=== PATIENT | female | born 1995 | race Caucasian/White ===

== ENCOUNTER 2017-11-21 08:46 | Emergency (ER) | payer BC, MEDICAID ==
[~2017-11-21] VITALS: Ht 162.6 cm; Wt 62.5 kg
[~2017-11-21 08:46] MED LIST: ZOFR4TAB3 PO
[2017-11-21 08:52] VITALS: BP 127/64; PULSE 97; RESP 18; TEMP 99.3; O2SAT 100
[2017-11-21] MEDS ORDERED: SODIUM CHLOR 0.9% 1000 ML INJ 1,000 ML IV ONE (09:30)
[2017-11-21] MEDS ORDERED: PROCHLORPERAZINE INJ 10 MG/2 ML VIAL IV PUSH ONE (09:30)
[2017-11-21] MEDS ORDERED: ACETAMINOPHEN 650 MG SUPP RECTAL ONE (09:30)
[2017-11-21] MEDS ORDERED: diphenhydrAMINE HCL 50 MG/ML VIAL IV PUSH ONE (09:30)
[2017-11-21 09:48] LABS: AUTOMATED NEUTROPHIL # 7.6 TH/MM3 (1.8-7.7); BASOPHIL % 0.1 % (0.0-2.0); EOSINOPHIL % 0.1 % (0.0-4.0); HEMATOCRIT 39.2 % (35.0-46.0); HEMOGLOBIN 13.6 GM/DL (11.6-15.3); LYMPHOCYTE # 0.5 TH/MM3 (1.0-4.8); MEAN CELL VOLUME 86.6 FL (80.0-100.0); MEAN CORPUSCULAR HGB CONC 34.7 % (32.0-36.0); MEAN PLATELET VOLUME 10.1 FL (7.0-11.0); MONO % 5.2 % (0.0-8.0); MONOCYTE # 0.4 TH/MM3 (0-0.9); NEUT % 88.6 % (16.0-70.0); PLATELET COUNT 217 TH/MM3 (150-450); RED BLOOD COUNT 4.53 MIL/MM3 (4.00-5.30); WHITE BLOOD COUNT 8.6 TH/MM3 (4.0-11.0)
[2017-11-21 09:53] LABS: BACTERIA, URINE FEW /hpf; BILIRUBIN, URINE NEG (NEG); BLOOD, URINE NEG (NEG); GLUCOSE,URINE NEG (NEG); KETONE, URINE 10 mg/dL (NEG); MUCUS URINE FEW /lpf (OCC); NITRITE,URINE NEG (NEG); SQUAMOUS EPITHELIAL CELL URINE 4 /hpf (0-5); URINE COLOR YELLOW (YELLW/STRAW); URINE LEUKOCYTE ESTERASE SMALL (NEG)
[2017-11-21 10:00] VITALS: BP 104/62; PULSE 85; RESP 16; O2SAT 99
[2017-11-21 10:04] LABS: ALBUMIN 3.8 GM/DL (3.4-5.0); AST (GOT) 13 U/L (15-37); BICARBONATE 21.6 MEQ/L (21.0-32.0); BLOOD UREA NITROGEN 6 MG/DL (7-18); CALCIUM 8.8 MG/DL (8.5-10.1); CHLORIDE 105 MEQ/L (98-107); GLOMERULAR FILTRATION RATE 154 ML/MIN (>89); GLUCOSE,RANDOM 87 MG/DL (74-106); SODIUM (NA) 136 MEQ/L (136-145)
[2017-11-21 10:05] LABS: ALT (GPT) 27 U/L (10-53)
[2017-11-21 10:07] LABS: ALKALINE PHOSPHATASE 51 U/L (45-117); TOTAL BILIRUBIN ADULT 0.7 MG/DL (0.2-1.0); TOTAL PROTEIN 7.1 GM/DL (6.4-8.2)
[2017-11-21] MEDS ORDERED: cefTRIAXone INJ 1,000 MG in SODIUM CHLORIDE 0.9% INJ 100 ML IV ONE (10:15)
--- NOTE | 2017-11-21 10:42 | PD ---
HPI . Fever Chief Complaint: Related Problem Time Seen by Provider: 09:01 Travel History International Travel<30 days: No Contact w/Intl Traveler<30days: No Traveled to known affect area: No History of Present Illness HPI This patient presents with the chief complaint of fever. Onset was about 8:00 last night. Symptoms have been constant since that time. Associated symptoms include nausea, vomiting and myalgias. T-max was 103. Severity of vomiting is greater than 10 episodes. Context is that she is 10 weeks . She is followed by OB. PFSH Past Medical History ADHD: Yes Diminished Hearing: No Tetanus Vaccination: < 5 Years Influenza Vaccination: Yes ?: LMP: 09/18/17 : 1 Para: 1 Past Surgical History Other Surgery: Yes (2005 CYST REMOVED OFF SCALP) Social History Alcohol Use: No Tobacco Use: No Substance Use: No Allergies-Medications (Allergen,Severity, Reaction): Coded Allergies: No Known Allergies (Unverified Adverse Reaction, Unknown, 11/21/17) Reported Meds & Prescriptions Reported Meds & Active Scripts Active Review of Systems Except as stated in HPI: all other systems reviewed are Neg General / Constitutional: Positive: Fever, Chills HENT: No: Sore Throat, Rhinorrhea Respiratory: No: Cough, Shortness of Breath Gastrointestinal: Positive: Nausea, Vomiting, No: Diarrhea Genitourinary: Positive: Flank Pain, No: Urgency, Frequency, Dysuria Musculoskeletal: Positive: Myalgias Physical Exam Narrative GENERAL: Awake and alert. She does not look like she feels well. SKIN: warm/dry. Normal color and turgor. HEAD: Normocephalic. Atraumatic. EYES: Pupils equal and round. No scleral icterus. No injection or drainage. ENT: No nasal bleeding or discharge. Mucous membranes pink and moist. NECK: Trachea midline. Full range of motion without pain.. CARDIOVASCULAR: Regular rate and rhythm. Heart sounds are normal. RESPIRATORY: No accessory muscle use. Clear to auscultation. Breath sounds equal bilaterally. GASTROINTESTINAL: Abdomen soft. Nontender. Bowel sounds present. Nondistended. : Positive left CVA tenderness. MUSCULOSKELETAL: No obvious deformities. NEUROLOGICAL: Awake and alert. No obvious cranial nerve deficits. Motor grossly within normal limits. Normal speech. PSYCHIATRIC: Appropriate mood and affect; insight and judgment normal. Data Data Last Documented VS Vital Signs Date Time Temp Pulse Resp B/P (MAP) Pulse Ox O2 Delivery O2 Flow Rate FiO2 11/21/17 08:52 99.3 97 18 127/64 (85) 100 Orders Orders Sepsis Workup Initiated (11/21/17 ) Complete Blood Count With Diff (11/21/17 09:20) Comprehensive Metabolic Panel (11/21/17 09:20) Lactic Acid Sepsis Protocol (11/21/17 09:20) Urinalysis - C+S If Indicated (11/21/17 09:20) Blood Culture (11/21/17 09:20) Iv Access Insert/Monitor (11/21/17 09:20) Acetaminophen Supp (Tylenol Supp) (11/21/17 09:30) Sodium Chlor 0.9% 1000 Ml Inj (Ns 1000 M (11/21/17 09:30) Diphenhydramine Inj (Benadryl Inj) (11/21/17 09:30) Prochlorperazine Inj (Compazine Inj) (11/21/17 09:30) Urine Culture (11/21/17 09:30) Ceftriaxone Inj (Rocephin Inj) (11/21/17 10:15) Us Kidney/Renal/Bladder (11/21/17 10:03) Labs Laboratory Tests Test 11/21/17 09:30 White Blood Count 8.6 TH/MM3 Red Blood Count 4.53 MIL/MM3 Hemoglobin 13.6 GM/DL Hematocrit 39.2 % Mean Corpuscular Volume 86.6 FL Mean Corpuscular Hemoglobin 30.0 PG Mean Corpuscular Hemoglobin Concent 34.7 % Red Cell Distribution Width 13.0 % Platelet Count 217 TH/MM3 Mean Platelet Volume 10.1 FL Neutrophils (%) (Auto) 88.6 % Lymphocytes (%) (Auto) 6.0 % Monocytes (%) (Auto) 5.2 % Eosinophils (%) (Auto) 0.1 % Basophils (%) (Auto) 0.1 % Neutrophils # (Auto) 7.6 TH/MM3 Lymphocytes # (Auto) 0.5 TH/MM3 Monocytes # (Auto) 0.4 TH/MM3 Eosinophils # (Auto) 0.0 TH/MM3 Basophils # (Auto) 0.0 TH/MM3 CBC Comment DIFF FINAL Differential Comment Urine Color YELLOW Urine Turbidity CLEAR Urine pH 7.0 Urine Specific [place] 1.025 Urine Protein TRACE mg/dL Urine Glucose (UA) NEG mg/dL Urine Ketones 10 mg/dL Urine Occult Blood NEG Urine Nitrite NEG Urine Bilirubin NEG Urine Urobilinogen LESS THAN 2.0 MG/DL Urine Leukocyte Esterase SMALL Urine RBC 1 /hpf Urine WBC 3 /hpf Urine Squamous Epithelial Cells 4 /hpf Urine Bacteria FEW /hpf Urine Mucus FEW /lpf Microscopic Urinalysis Comment CATH-CULTURE IND Blood Urea Nitrogen 6 MG/DL Creatinine 0.50 MG/DL Random Glucose 87 MG/DL Total Protein 7.1 GM/DL Albumin 3.8 GM/DL Calcium Level 8.8 MG/DL Alkaline Phosphatase 51 U/L Aspartate Amino Transf (AST/SGOT) 13 U/L Alanine Aminotransferase (ALT/SGPT) 27 U/L Total Bilirubin 0.7 MG/DL Sodium Level 136 MEQ/L Potassium Level 3.7 MEQ/L Chloride Level 105 MEQ/L Carbon Dioxide Level 21.6 MEQ/L Anion Gap 9 MEQ/L Estimat Glomerular Filtration Rate 154 ML/MIN Lactic Acid Level 0.6 mmol/L MDM Medical Decision Making Medical Screen Exam Complete: Yes Emergency Medical Condition: Yes Differential Diagnosis Differential diagnosis of fever includes but is not limited to viral illness, strep throat, otitis media, pneumonia, sepsis, UTI Narrative Course This patient presents complaining with the acute onset of fevers, vomiting and myalgias last night. She is . Septic workup was initiated. IV fluids were ordered. Compazine and Benadryl were ordered for the vomiting. I ordered a Tylenol suppository for fever but she refused. She is afebrile here. CBC & BMP Diagram 11/21/17 09:30 Total Protein 7.1, Albumin 3.8, Calcium Level 8.8, Alkaline Phosphatase 51, Aspartate Amino Transf (AST/SGOT) 13 L, Alanine Aminotransferase (ALT/SGPT) 27, Total Bilirubin 0.7 Lactic acid 0.6 UA shows small leukocyte esterase, few bacteria and 3 WBC I have ordered Rocephin 1 g IV and an ultrasound of her kidney to rule out pyelonephritis. US>>Normal examination. This patient will be discharged home with a prescription for Zofran and Macrobid. Diagnosis Primary Impression: Fever Qualified Codes: R50.9 - Fever, unspecified Additional Impressions: Myalgia Vomiting Qualified Codes: R11.2 - Nausea with vomiting, unspecified Urinary tract infection Qualified Codes: N39.0 - Urinary tract infection, site not specified Patient Instructions: General Instructions, Urinary Tract Infection in (DC) Med/Other Pt SpecificInfo: Prescription(s) given Scripts Nitrofurantoin Monohydrate Macrocrystals (Macrobid) 100 Mg Capsule 100 MG PO BID for Infection for 7 Days, #14 CAP 0 Refills Prov: Sweta Palacios MD 11/21/17 Ondansetron Odt (Zofran Odt) 4 Mg Tab 4 MG SL Q6HR Y for Nausea/Vomiting, #10 TAB 0 Refills Prov: Sweta Palacios MD 11/21/17 Disposition: 01 DISCHARGE HOME Condition: Stable Sweta Palacios MD November 21, 2017 10:42
--- NOTE | 2017-11-21 10:52 | RADRPT ---
EXAM DATE/TIME: 11/21/2017 10:26 [place] COMPARISON: No previous studies available for comparison. INDICATIONS : Flank pain. MEDICAL HISTORY : . ADHD. SURGICAL HISTORY : Cyst removed from scalp. ENCOUNTER: Initial ACUITY: 2 days PAIN SCORE: 7/10 LOCATION: Bilateral flank MEASUREMENTS: RIGHT KIDNEY: 11.9 x 6.1 x 4.8 cm LEFT KIDNEY: 10.7 x 5.7 x 6.1 cm FINDINGS: RIGHT KIDNEY: Renal cortex is normal in thickness and echotexture. No hydronephrosis, stone, or mass. LEFT KIDNEY: Renal cortex is normal in thickness and echotexture. No hydronephrosis, stone, or mass. BLADDER: Within normal limits given the degree of distension. CONCLUSION: Normal examination. Alexx Reese MD on November 21, 2017 at 10:49 Board Certified Radiologist. This report was verified electronically.
[2017-11-21] MEDS ORDERED: MACR100C2 PO (10:59)
[2017-11-21] MEDS ORDERED: ZOFR4TAB3 SL (10:59)
[2017-11-21 11:00] VITALS: BP 102/60; PULSE 86; RESP 18; O2SAT 99
== END 2017-11-21 11:43 | disposition home or self-care (01) ==
LOC: NEPD 08:46
DX: O23.41 Unspecified infection of urinary tract in pregnancy, first trimester (principal); Z3A.10 10 weeks gestation of pregnancy
CPT/HCPCS: 76775; 80053; 81001; 83605; 85025; 87040; 87086; 96361; 96365; 96375; 99284; J0696; J0780; J1200; J7030

== ENCOUNTER 2018-05-12 15:20 | Observation (INO) ==
--- NOTE | 2018-05-12 16:32 | ED ---
History of Present Illness Primary Care Physician: No Primary Care Physician Dr. August History of Present Illness: 23 y/o F, 34wks gestation, presents with persistent N/V over the day today, with mild diarrhea. She had nausea medication at the office which helped a little bit. She is also feeling pain in her back and feels like she is having contractions. Denies any LOF. Denies Vb. +FM obhx: planning on c/s for this due to laceration VD x 1 - 2016, with 4th degree tear, complicated by pre-term labor medhx: none meds: PNV all: NKDA Review of Systems All other systems reviewed negative except as stated in HPI PMFSH - History History Provided By: Patient - Surgical History Surgical History: Surgical History (Last Updated 03/18/18 @ 15:20 by Delilah Powers MD, R2) H/O removal of cyst - Tobacco History Second Hand Smoke Exposure: No Smoking Status: Never smoker - Alcohol History How Often Do You Have a Drink Containing Alcohol: Never - Substance Use History Substance History: No History of Abuse - Travel History History of Recent Travel: No Medications and Allergies Allergies Allergy/AdvReac Type Severity Reaction Status Date / Time No Known Allergies Allergy Verified 03/07/18 13:48 Home Medications Medication Instructions Recorded Confirmed Type vit,[id number] 1 tab PO DAILY 02/09/18 05/12/18 History [PNV 29-1] Exam Vital signs: Vital Signs 05/12/18 15:45 Temperature 100.3 F H Pulse Rate 123 H Respiratory Rate 20 Blood Pressure 118/71 Narrative: GENERAL: Well-nourished, well-developed patient. SKIN: Warm and dry. HEAD: Normocephalic and atraumatic. EYES: No scleral icterus. No injection or drainage. ENT: No nasal drainage noted. Mucous membranes pink. Airway patent. NECK: Supple, trachea midline. No JVD. CARDIOVASCULAR: Regular rate and rhythm without murmurs, gallops, or rubs. RESPIRATORY: Breath sounds equal bilaterally. No accessory muscle use. ABDOMEN/GI: Abdomen soft, non-tender, bowel sounds present, no rebound, no guarding Gravid to 35 weeks size Fundal Height: 35 SVE: 50/-3 GENITOURINARY: External Genitalia: intact and normal in appearance FHT's: Cat 1 tracing, no decels, +accels irregular cxns on monitor EXTREMITIES: No cyanosis or edema. BACK: Nontender without obvious deformity. No CVA tenderness. NEUROLOGICAL: Awake and alert. Motor and sensory grossly within normal limits. Five out of 5 muscle strength in all muscle groups. Normal speech. Results - Labs CBC & Chem 7: 05/12/18 15:44 Assessment and Plan - Diagnosis (1) 34 weeks gestation of Code(s): Z3A.34 - 34 weeks gestation of Status: Acute Plan: 23 y/o F, 34wks gestation, presents with gastritis and pre-term contractions likely related to dehydration. - 1L bolus x 2, then LR at 125/hr - f/u CBC, CMP, UA - Protonix 20mg IVP - Zofran 4mg IVP - Cat 1 tracing, cont to monitor - MD aware (2) Gastroenteritis Code(s): K52.9 - Noninfective gastroenteritis and colitis, unspecified Status : Acute (3) contractions Code(s): O47.9 - False labor, unspecified Status: Acute Discharge Plan - Discharge Disposition Patient Disposition: 30 Still Patient - Physicians Team ED Provider: Gemma White Primary Care Provider: Primary Care Mar Saavedra - Rxs /Orders / Referrals /Forms Prescriptions: No Action vit,[id number] [PNV 29-1] 29 mg iron- 1 mg Tablet 1 tab PO DAILY - Discharge Instructions Print Language: Monegasque
[2018-05-12 16:34] LABS: Baso % (Auto) 0.3 % (0.0-2.0); Eos % (Auto) 0.1 % (0.0-4.0); Hematocrit 35.4 % (35.0-46.0); Hemoglobin 12.1 gm/dL (11.6-15.3); Lymph # (Auto) 0.8 th/mm3 (1.0-4.8); Lymph % (Auto) 6.2 % (9.0-44.0); Mean Corpuscular HGB Conc 34.1 % (32.0-36.0); Mean Platelet Volume 10.1 fL (7.0-11.0); Mono # (Auto) 0.5 th/mm3 (0.0-0.9); Mono % (Auto) 3.7 % (0.0-8.0); Neut # (Auto) 11.7 th/mm3 (1.8-7.7); Neut % (Auto) 89.7 % (16.0-70.0); Platelet Count 191 th/mm3 (150-450); Red Blood Count 4.17 mil/mm3 (4.00-5.30); Red Cell Distribution Width 13.5 % (11.6-17.2); White Blood Count 13.1 th/mm3 (4.0-11.0)
[2018-05-12] MEDS ORDERED: Pantoprazole Inj 40 MG Vial IV.PUSH ONE (16:35)
[2018-05-12] MEDS ORDERED: Labetalol HCl Inj 100 MG/20 ML Vial IV.PUSH ONE (16:51)
[2018-05-12] MEDS ORDERED: Morphine Sulfate Inj 2 MG/ML Vial IV.PUSH ONE (17:10)
[2018-05-12 18:27] LABS: Alanine Aminotransferase 20 U/L (10-53); Albumin 2.9 g/dL (3.4-5.0); Anion Gap 12 meq/L (5-15); Aspartate Aminotransferase 14 U/L (15-37); Blood Urea Nitrogen 8 mg/dL (7-18); Calcium 8.6 mg/dL (8.5-10.1); Carbon Dioxide 22.4 meq/L (21.0-32.0); Chloride 106 meq/L (98-107); Glomerular Filtration Rate Greater Than 89 mL/min (>89); Glucose,Random 69 mg/dL (74-106); Potassium 3.7 meq/L (3.5-5.1); Sodium 140 meq/L (136-145)
[2018-05-12 18:29] LABS: Alkaline Phosphatase 118 U/L (45-117); Total Protein 7.4 g/dL (6.4-8.2)
[2018-05-12 18:35] LABS: Bacteria,Urine Occasional /hpf; Bilirubin,Urine Negative (Negative); Clarity,Urine Hazy (Clear); Color,Urine Yellow (Yellw/Straw); Glucose,Urine (UA) Negative (Negative); Leukocyte Esterase,Urine Large (Negative); Mucus,Urine Few /lpf (Occasional); Nitrite,Urine Negative (Negative); Specific Gravity,Urine 1.025 (1.002-1.035); Squamous Epithelial Cell,Urine 6 /hpf (0-5)
--- NOTE | 2018-05-12 23:09 | P.PN ---
Subjective Interval history: OB Patient presented to [facility] with nausea and vomiting. She was noted to become febrile during her evaluation, so will admit to Dr. Morgan for 23 hour observation and IV hydration. Physical Exam Vital signs: Vital Signs 05/12/18 15:45 05/12/18 18:05 05/12/18 19:17 Temperature 100.3 F H 100.0 F H 101.9 F H Pulse Rate 123 H Respiratory Rate 20 20 Blood Pressure 118/71 05/12/18 21:11 05/12/18 21:35 05/12/18 21:40 Temperature 98.6 F Pulse Rate 110 H 117 H Respiratory Rate 18 Blood Pressure 109/38 L 101/45 L 05/12/18 21:41 05/12/18 22:04 05/12/18 22:05 Temperature 99.5 F Pulse Rate 109 H Respiratory Rate 18 Blood Pressure 111/43 L 05/12/18 22:15 05/12/18 22:17 05/12/18 22:45 Temperature Pulse Rate 103 H 102 H Respiratory Rate 18 Blood Pressure 106/41 L 103/42 L 05/12/18 22:54 Temperature Pulse Rate Respiratory Rate 18 Blood Pressure Intake & Output 05/12/18 05/12/18 05/13/18 06:59 18:59 06:59 Weight 77.111 kg 77.111 kg Other: Weight On Admission 77.111 kg Results - Labs CBC & Chem 7: 05/12/18 15:44 05/12/18 15:44 Laboratory Results - last 24 hr 05/12/18 05/12/18 05/12/18 15:44 15:44 15:44 WBC 13.1 H RBC 4.17 Hgb 12.1 Hct 35.4 MCV 85.0 MCH 29.0 MCHC 34.1 RDW 13.5 Plt Count 191 MPV 10.1 Neut % (Auto) 89.7 H Lymph % (Auto) 6.2 L [place] % (Auto) 3.7 Eos % (Auto) 0.1 Baso % (Auto) 0.3 Neut # (Auto) 11.7 H Lymph # (Auto) 0.8 L [place] # (Auto) 0.5 Eos # (Auto) 0.0 Baso # (Auto) 0.0 WBC Differential . Differential Comment Auto diff final Sodium 140 Potassium 3.7 Chloride 106 Carbon Dioxide 22.4 Anion Gap 12 BUN 8 Creatinine 0.52 Estimated GFR Greater than 89 Random Glucose 69 L Calcium 8.6 Total Bilirubin 0.5 AST 14 L ALT 20 Alkaline Phosphatase 118 H Total Protein 7.4 Albumin 2.9 L Urine Color Yellow Urine Clarity Hazy H Urine pH 5.0 Ur Specific [place] 1.025 Urine Protein 30 H Urine Glucose (UA) Negative Urine Ketones 80 or greater H Urine Occult Blood Negative Urine Nitrate Negative Urine Bilirubin Negative Urine Urobilinogen 2.0 H Ur Leukocyte Esterase Large H Urine RBC 1 Urine WBC 11 H Ur Squamous Epith Cells 6 Urine Bacteria Occasional H Urine Mucus Few H Micro UA Comment Culture indicated Ur Microscopic Review Not Reportable Urine Culture Comments Culture indicated Microbiology 05/12/18 19:20 Nasal Wash Influenza Types A,B Antigen - Final Negative for FLU A and B antigen Infection due to influenza A or B cannot be ruled out since the antigen present in the sample may be below the detection limit of the test.
--- NOTE | 2018-05-12 23:23 | P.HPUP ---
The Pre-Admit History and Physical Examination regarding the above named patient was reviewed (including, but not limited to, vital signs, heart, lungs, co-morbid conditions), and upon re-examination it is noted that: the patient's condition has not significantly changed since the last examination. Changes: Patient Name: Darline Rodriguez Date of : [birth year] Patient Status: Observation Attending Provider: Wilfred August Date: 05/12/18 16:28 Initialization Date: 05/12/18 16:28 History of Present Illness Primary Care Physician: No Primary Care Physician Dr. August History of Present Illness: 23 y/o , IUP at 34.4 weeks care uncomplicated per patient report except by history of fourth degree laceration so scheduled for delivery. The presents with persistent nausea and vomiting over the day today and mild diarrhea. She has not had any diarrhea since arrival. She was seen in the office today and received phenergan which she reports helped a little bit. She is also feeling pain in her back and feels like she is having contractions. Denies any leaking of fluid or vaginal bleeding. She reports good movement. 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, planning on c/s for this due to laceration, complicated by pre-term labor but didn't deliver PMH: Denies FH: noncontributory PSH: history of cyst removal SH: Denies Meds/Allergies: as per EMR Review of Systems All other systems reviewed negative except as stated in HPI PMFSH - History History Provided By: Patient - Surgical History Surgical History: Surgical History (Last Updated 03/18/18 @ 15:20 by Delilah Powers MD, R2) H/O removal of cyst - Tobacco History Second Hand Smoke Exposure: No Smoking Status: Never smoker - Alcohol History How Often Do You Have a Drink Containing Alcohol: Never - Substance Use History Substance History: No History of Abuse - Travel History History of Recent Travel: No Medications and Allergies Allergies Allergy/AdvReac Type Severity Reaction Status Date / Time No Known Allergies Allergy Verified 03/07/18 13:48 Home Medications Medication Instructions Recorded Confirmed Type vit,[id number] 1 tab PO DAILY 02/09/18 05/12/18 History [PNV 29-1] Exam Vital signs: Vital Signs 05/12/18 15:45 Temperature 100.3 F H Pulse Rate 123 H Respiratory Rate 20 Blood Pressure 118/71 Narrative: examination as per previous documentation GENERAL: Well-nourished, well-developed patient. SKIN: Warm and dry. HEAD: Normocephalic and atraumatic. EYES: No scleral icterus. No injection or drainage. ENT: No nasal drainage noted. Mucous membranes pink. Airway patent. NECK: Supple, trachea midline. No JVD. CARDIOVASCULAR: Regular rate and rhythm without murmurs, gallops, or rubs. RESPIRATORY: Breath sounds equal bilaterally. No accessory muscle use. ABDOMEN/GI: Abdomen soft, non-tender, bowel sounds present, no rebound, no guarding Gravid to 35 weeks size Fundal Height: 35 SVE: 50/-3 GENITOURINARY: External Genitalia: intact and normal in appearance FHT's: heart tones are in the 160s with moderate long-term variability, good accels, and no decels, tachycardia improved, Category 1 tracing irregular cxns on monitor EXTREMITIES: No cyanosis or edema. BACK: Nontender without obvious deformity. No CVA tenderness. NEUROLOGICAL: Awake and alert. Motor and sensory grossly within normal limits. Five out of 5 muscle strength in all muscle groups. Normal speech. Results - Labs CBC & Chem 7: Assessment and Plan 1. IUP at 34.4 2. Nausea/vomiting and diarrhea: possible gastroenteritis, will admit for 23 hour observation with IV hydration due to nausea and vomiting. Discussed with Dr. Morgan who is in agreement with admission. Will give Zofran as needed and other symptomatic treatment. 3. Febrile morbidity: influenza testing negative, no evidence of pyelonephritis , Urine culture pending, likely gastroenteritis, will monitor overnight. 4. wellbeing: reassuring testing with reactive NST and category 1 heart rate tracing, continue monitoring overnight. 5. History of fourth degree laceration: scheduled for elective delivery. 6. UA: urine culture pending
[2018-05-13] MEDS: Acetaminophen 325 MG Tablet PO PRN ×2 (03:23→08:09)
[2018-05-13] MEDS: Zolpidem Tartrate 5 MG Tablet PO PRN ×2 (04:06→20:51)
--- NOTE | 2018-05-13 11:11 | P.OBANTE ---
Subjective Interval History: feeling better Objective Vital Signs and I&O: Vital Signs 05/12/18 15:45 05/12/18 18:05 05/12/18 19:17 Temperature 100.3 F H 100.0 F H 101.9 F H Pulse Rate 123 H Respiratory Rate 20 20 Blood Pressure 118/71 05/12/18 21:11 05/12/18 21:35 05/12/18 21:40 Temperature 98.6 F Pulse Rate 110 H 117 H Respiratory Rate 18 Blood Pressure 109/38 L 101/45 L 05/12/18 21:41 05/12/18 22:04 05/12/18 22:05 Temperature 99.5 F Pulse Rate 109 H Respiratory Rate 18 Blood Pressure 111/43 L 05/12/18 22:15 05/12/18 22:17 05/12/18 22:45 Temperature Pulse Rate 103 H 102 H Respiratory Rate 18 Blood Pressure 106/41 L 103/42 L 05/12/18 22:54 05/12/18 23:00 05/12/18 23:27 Temperature Pulse Rate 99 H Respiratory Rate 18 18 Blood Pressure 106/39 L 05/13/18 00:03 05/13/18 00:18 05/13/18 00:33 Temperature 99.2 F Pulse Rate 95 H 96 H Respiratory Rate 18 18 Blood Pressure 103/46 L 102/41 L 05/13/18 01:50 05/13/18 02:00 05/13/18 02:59 Temperature Pulse Rate 95 H 102 H Respiratory Rate 18 18 Blood Pressure 105/45 L 103/45 L 05/13/18 03:00 05/13/18 03:22 05/13/18 03:25 Temperature 100.3 F H Pulse Rate 100 H 111 H Respiratory Rate Blood Pressure 111/52 L 05/13/18 03:30 05/13/18 03:35 05/13/18 03:45 Temperature Pulse Rate 107 H 107 H 107 H Respiratory Rate Blood Pressure 05/13/18 04:00 05/13/18 04:05 05/13/18 04:20 Temperature 100.1 F H Pulse Rate 115 H 115 H 111 H Respiratory Rate 18 Blood Pressure 112/49 L 05/13/18 04:40 05/13/18 04:57 05/13/18 05:00 Temperature 99.7 F H Pulse Rate 112 H 110 H Respiratory Rate 18 18 18 Blood Pressure 98/35 L 05/13/18 05:05 05/13/18 05:37 05/13/18 05:38 Temperature 99.8 F H Pulse Rate 114 H 110 H Respiratory Rate Blood Pressure 99/40 L 05/13/18 05:40 05/13/18 05:55 05/13/18 06:48 Temperature Pulse Rate 108 H 105 H 107 H Respiratory Rate 18 Blood Pressure 97/43 L 05/13/18 07:00 05/13/18 07:31 05/13/18 07:32 Temperature 98.6 F Pulse Rate 101 H 102 H Respiratory Rate 16 Blood Pressure 106/48 L 05/13/18 08:01 Temperature Pulse Rate 106 H Respiratory Rate Blood Pressure 118/68 Intake & Output 05/12/18 05/13/18 05/13/18 18:59 06:59 18:59 Intake Total 1000 / 1000 Balance 1000 / 1000 Weight 77.111 kg 77.111 kg Intake: IV 1000 / 1000 LR 1000 mL Inj 1,000 ML @ 150 1000 / 1000 mls/hr IV.SIG .[id number] [facility] Rx#: [id number] Other: Weight On Admission 77.111 kg Lab and Micro Results: Laboratory Results - last 24 hr 05/12/18 05/12/18 05/12/18 15:44 15:44 15:44 WBC 13.1 H RBC 4.17 Hgb 12.1 Hct 35.4 MCV 85.0 MCH 29.0 MCHC 34.1 RDW 13.5 Plt Count 191 MPV 10.1 Neut % (Auto) 89.7 H Lymph % (Auto) 6.2 L [place] % (Auto) 3.7 Eos % (Auto) 0.1 Baso % (Auto) 0.3 Neut # (Auto) 11.7 H Lymph # (Auto) 0.8 L [place] # (Auto) 0.5 Eos # (Auto) 0.0 Baso # (Auto) 0.0 WBC Differential . Differential Comment Auto diff final Sodium 140 Potassium 3.7 Chloride 106 Carbon Dioxide 22.4 Anion Gap 12 BUN 8 Creatinine 0.52 Estimated GFR Greater than 89 Random Glucose 69 L Calcium 8.6 Total Bilirubin 0.5 AST 14 L ALT 20 Alkaline Phosphatase 118 H Total Protein 7.4 Albumin 2.9 L Urine Color Yellow Urine Clarity Hazy H Urine pH 5.0 Ur Specific [place] 1.025 Urine Protein 30 H Urine Glucose (UA) Negative Urine Ketones 80 or greater H Urine Occult Blood Negative Urine Nitrate Negative Urine Bilirubin Negative Urine Urobilinogen 2.0 H Ur Leukocyte Esterase Large H Urine RBC 1 Urine WBC 11 H Ur Squamous Epith Cells 6 Urine Bacteria Occasional H Urine Mucus Few H Micro UA Comment Culture indicated Ur Microscopic Review Not Reportable Urine Culture Comments Culture indicated Microbiology 05/12/18 19:20 Influenza Types A,B Antigen - Final Nasal Wash Negative for FLU A and B antigen Infection due to influenza A or B cannot be ruled out since the antigen present in the sample may be below the detection limit of the test. Physical Exam: GENERAL: Well-nourished, well-developed patient. CARDIOVASCULAR: Regular rate and rhythm without murmurs, gallops, or rubs. RESPIRATORY: Breath sounds equal bilaterally. No accessory muscle use. ABDOMEN/GI: Abdomen soft, non-tender, no CVA tenderness Fundus: soft nontender GENITOURINARY: External Genitalia: intact and normal in appearance FHT's: STRIP REVIEWD BY DR AUGUST- CATEGORY 1 tracing EXTREMITIES: No cyanosis or edema, non-tender, without signs of DVT. exam by Dr August Assessment and Plan - Plan pt feeling better c/o headache was given tylenol has been afebrile (taking tylenol) tolerating PO, regular food no vomiting or diarrhea tracing good we will watch today and probable dc home later today Discharge Planning: dc home today
[2018-05-13] MEDS: Butalbital/APAP/Caff 50/325/40 MG Tablet PO PRN ×2 (12:59→18:29)
== END 2018-05-14 09:37 | disposition home or self-care (01) ==
LOC: HOBED 15:20 → H2E 15:20
PROVIDERS: ADMIT Obstetrics & Gynecology; ATTEND Obstetrics & Gynecology

== ENCOUNTER 2018-06-15 09:41 | Inpatient (IN) ==
[2018-06-15] MEDS ORDERED: EPINEPHrine PF/SF Inj 1 MG/ML Ampul I-OCULAR ONE (10:44)
--- NOTE | 2018-06-15 10:56 | P.HPOB ---
History of Present Illness Service: Labor & Delivery Primary Care Physician: Norman Heredia DO Chief Complaint: History of Present Illness: Scheduled due to previous fourth degree tear during delivery Weeks Gestation:: 39 Para: 1 : 2 - Inpatient Certification I certify that the inpatient services were ordered in accordance with Medicare regulations governing the order. This includes certification that hospital inpatient services are reasonable and necessary and in the case of services not specified as inpatient-only under 42 CFR 419.22(n), that they are appropriately provided as inpatient services in accordance to with the 2-midnight benchmark under 43 CFR 412.3(e) Estimated Total Length of Stay (Days): 3 Plans for Post Hospital Care: Home Review of Systems All other systems reviewed negative except as stated in HPI PMFSH - History History Provided By: Patient - Medical / Surgical Hx Neg / Unobtainable Medical Problems Denied: Yes - Surgical History Surgical History: Surgical History (Last Reviewed 06/08/18 @ 11:19 by Helena Sanford MD, R1) H/O removal of cyst - Tobacco History Second Hand Smoke Exposure: No Smoking Status: Never smoker - Alcohol History How Often Do You Have a Drink Containing Alcohol: Never - Substance Use History Substance History: No History of Abuse - Travel History History of Recent Travel: No Medications and Allergies Allergies Allergy/AdvReac Type Severity Reaction Status Date / Time No Known Allergies Allergy Verified 05/12/18 21:53 Home Medications Medication Instructions Recorded Confirmed Type vit,[id number] 1 tab PO DAILY 02/09/18 06/08/18 History [PNV 29-1] acetaminophen [Tylenol] 650 mg PO Q4H PRN 06/08/18 06/08/18 History Exam Vital signs: Vital Signs 06/15/18 10:20 Temperature 98.8 F Pulse Rate 98 H Respiratory Rate 18 Blood Pressure 116/66 - Constitutional no acute distress, cooperative - Routine HEENT Exam Head: Present: normocephalic, atraumatic Eye: Present: EOMI, PERRL - Routine Neck Exam Present: full ROM - Routine Respiratory Exam Present: CTA bilaterally - Routine Cardiovascular Exam Present: RRR, S1, S2 - Routine Abdominal Exam Present: soft, normoactive bowel sounds - Routine Extremities Exam Present: full ROM - Routine Skin Exam Present: intact - Routine Neurological Exam Present: alert, oriented X3 Caprini VTE Risk Assessment Caprini VTE Risk Assessment: No/Low Risk (score <= 1) Caprini Risk Assessment Model: Point Value = 1 Point Value = 2 Point Value = 3 Point Value = 5 Age 41-60 Minor surgery BMI > 25 kg/m2 Swollen legs Varicose veins or History of unexplained or recurrent spontaneous Oral contraceptives or hormone replacement Sepsis (< 1 month) Serious lung disease, including pneumonia (< 1 month) Abnormal pulmonary function Acute myocardial infarction Congestive heart failure (< 1 month) History of inflammatory bowel disease Medical patient at bed rest Age 61-74 Arthroscopic surgery Major open surgery (> 45 min) Laparoscopic surgery (> 45 min) Malignancy Confined to bed (> 72 hours) Immobilizing plaster cast Central venous access Age >= 75 History of VTE Family history of VTE Factor V Leiden Prothrombin [id number] Lupus anticoagulant Anticardiolipin antibodies Elevated serum homocysteine Heparin-induced thrombocytopenia Other congenital or acquired thrombophilia Stroke (< 1 month) Elective arthroplasty Hip, pelvis, or leg fracture Acute spinal cord injury (< 1 month) Prophylaxis Regimen: Total Risk Factor Score Risk Level Prophylaxis Regimen 0-1 Low Early ambulation 2 Moderate Order ONE of the following: *Sequential Compression Device (SCD) *Heparin 5000 units SQ BID 3-4 Higher Order ONE of the following medications: *Heparin 5000 units SQ TID *Enoxaparin/Lovenox 40 mg SQ daily (WT < 150 kg, CrCl > 30 mL/min) *Enoxaparin/Lovenox 30 mg SQ daily (WT < 150 kg, CrCl > 10-29 mL/min) *Enoxaparin/Lovenox 30 mg SQ BID (WT < 150 kg, CrCl > 30 mL/min) AND/OR *Sequential Compression Device (SCD) 5 or more Highest Order ONE of the following medications: *Heparin 5000 units SQ TID (Preferred with Epidurals) *Enoxaparin/Lovenox 40 mg SQ daily (WT < 150 kg, CrCl > 30 mL/min) *Enoxaparin/Lovenox 30 mg SQ daily (WT < 150 kg, CrCl > 10-29 mL/min) *Enoxaparin/Lovenox 30 mg SQ BID (WT < 150 kg, CrCl > 30 mL/min) AND *Sequential Compression Device (SCD) Assessment and Plan - Plan 1. today
[2018-06-15 11:19] LABS: Baso # (Auto) 0.1 th/mm3 (0.0-0.2); Baso % (Auto) 0.7 % (0.0-2.0); Eos # (Auto) 0.1 th/mm3 (0.0-0.4); Eos % (Auto) 1.1 % (0.0-4.0); Hematocrit 34.6 % (35.0-46.0); Hemoglobin 11.6 gm/dL (11.6-15.3); Lymph # (Auto) 2.3 th/mm3 (1.0-4.8); Lymph % (Auto) 21.2 % (9.0-44.0); Mean Corpuscular HGB Conc 33.5 % (32.0-36.0); Mean Corpuscular Hemoglobin 27.7 pg (27.0-34.0); Mean Corpuscular Volume 82.6 fL (80.0-100.0); Mean Platelet Volume 10.5 fL (7.0-11.0); Mono # (Auto) 0.7 th/mm3 (0.0-0.9); Mono % (Auto) 6.1 % (0.0-8.0); Neut # (Auto) 7.7 th/mm3 (1.8-7.7); Neut % (Auto) 70.9 % (16.0-70.0); Platelet Count 293 th/mm3 (150-450); Red Blood Count 4.19 mil/mm3 (4.00-5.30); Red Cell Distribution Width 14.7 % (11.6-17.2); White Blood Count 10.9 th/mm3 (4.0-11.0)
[2018-06-15 11:26] LABS: Amphetamine Screen,Urine Neg (Neg); Barbiturate Screen,Urine Neg (Neg); Cannabinoid Screen,Urine Neg (Neg); Cocaine Screen,Urine Neg (Neg)
[2018-06-15] MEDS ORDERED: Citric Acid/Sodium Citrate Liq 30 ML UDC PO SCH (11:30)
[2018-06-15 11:35] LABS: Bacteria,Urine Rare /hpf; Bilirubin,Urine Negative (Negative); Clarity,Urine Clear (Clear); Color,Urine Yellow (Yellw/Straw); Glucose,Urine (UA) Negative (Negative); Leukocyte Esterase,Urine Trace (Negative); Mucus,Urine Few /lpf (Occasional); Nitrite,Urine Negative (Negative); Specific Gravity,Urine 1.016 (1.002-1.035); Squamous Epithelial Cell,Urine 4 /hpf (0-5)
[2018-06-15 11:36] LABS: Opiate Screen,Urine Neg (Neg)
[2018-06-15] MEDS ORDERED: Morphine Sulfate PF Inj 5 MG/10 ML Ampul ONE (11:59)
[2018-06-15] MEDS ORDERED: ceFAZolin 2 GM Premix Inj 2 GM/50 ML PIGGYBACK IV.SIG ONE (12:00)
[2018-06-15] MEDS ORDERED: Oxytocin 30 Units/500ml Premix 30 UNITS/500 ML BAG IV.SIG ONE (14:07)
--- NOTE | 2018-06-15 14:07 | P.OP ---
- Preoperative Diagnosis (1) Intrauterine (2) Fourth degree perineal laceration affecting delivery - Postoperative Diagnosis (1) Fourth degree perineal laceration affecting delivery Date of procedure: 06/15/18 Procedure: Primary low transverse section Anesthesia: spinal Surgeon: Wilfred August MD Estimated blood loss (mL): 500 Operation and Findings: Complications none Findings normal female infant Apgars 8 and 9 weight was 8 pounds 2 ounces. Normal uterus normal tubes normal ovaries. Normal cul-de-sacs Counts were correct Procedure in detail Taken to the operating room identified by name band and verbally and given a regional anesthetic. She was prepped and draped in the usual sterile manner for a section. A time out was taken. A Pfannenstiel incision was made and carried down to the fascia the fascia was nicked bilaterally and the fascia was taken off the rectus muscle by blunt and sharp dissection. The rectus muscles were spread bluntly and the peritoneum was entered under direct vision. The incision was extended with care to avoid the urinary bladder. A bladder blade was placed and a bladder flap was created in the usual fashion. The lower uterine segment was then incised sharply in a transverse manner and taken down in the midline until the uterine cavity was entered. The incision was extended with the surgeon's fingers. The vertex was grasped and with fundal pressure the vertex was delivered without difficulty hypopharynx and nasopharynx were suctioned and the remainder of the delivered without difficulty. The cord clamping was delayed 45 seconds and then the cord was clamped cut and the was handed over to the resuscitation team cord blood was obtained the placenta was removed manually and the uterus was curettaged twice with a wet lap. The uterus was delivered from the abdomen. The uterine incision was repaired with 0 Vicryl in a running fashion in 2 layers the second layer imbricating the first. The cul-de-sac and gutters were cleaned of blood and debris the uterus was delivered back into the abdomen. The rectus muscles were reapproximated with 0 Vicryl in a running the fascia was repaired with 0 Vicryl from lateral to midline bilaterally. The subcutaneous layer was repaired with a 3-0 Vicryl. The skin was repaired with a 4-0 Monocryl in a subcuticular manner. Patient tolerated the procedure well and went to recovery room in good condition.
[2018-06-15] MEDS ORDERED: Naloxone Inj 0.4 MG/ML Vial IV.PUSH PRN (15:45)
[2018-06-15] MEDS ORDERED: Oxytocin 30 Units/500ml Premix 30 UNITS/500 ML BAG IV.SIG PRN (19:07)
[2018-06-15] MEDS: ceFAZolin 1 GM Premix Inj 1 GM/50 ML FROZ.PIGGY IV.SIG SCH (20:36)
[2018-06-15] MEDS: Senna/Docusate Sodium 8.6/50 MG Tablet PO PRN (20:36)
[2018-06-15] MEDS ORDERED: Zolpidem Tartrate 5 MG Tablet PO PRN (21:00)
[2018-06-16] MEDS: ceFAZolin 1 GM Premix Inj 1 GM/50 ML FROZ.PIGGY IV.SIG SCH (05:09)
[2018-06-16 05:51] LABS: Baso # (Auto) 0.1 th/mm3 (0.0-0.2); Baso % (Auto) 0.5 % (0.0-2.0); Eos % (Auto) 0.2 % (0.0-4.0); Hematocrit 32.1 % (35.0-46.0); Hemoglobin 10.5 gm/dL (11.6-15.3); Lymph # (Auto) 3.1 th/mm3 (1.0-4.8); Lymph % (Auto) 16.7 % (9.0-44.0); Mean Corpuscular HGB Conc 32.7 % (32.0-36.0); Mean Corpuscular Volume 82.5 fL (80.0-100.0); Mean Platelet Volume 10.4 fL (7.0-11.0); Mono # (Auto) 1.6 th/mm3 (0.0-0.9); Mono % (Auto) 8.5 % (0.0-8.0); Neut # (Auto) 13.6 th/mm3 (1.8-7.7); Neut % (Auto) 74.1 % (16.0-70.0); Platelet Count 295 th/mm3 (150-450); Red Blood Count 3.89 mil/mm3 (4.00-5.30); Red Cell Distribution Width 14.4 % (11.6-17.2); White Blood Count 18.3 th/mm3 (4.0-11.0)
--- NOTE | 2018-06-16 08:39 | P.PNOB ---
Subjective Post op day: 1 Objective Vital Signs/I&O: Vital Signs 06/15/18 10:20 06/15/18 14:00 06/15/18 14:15 Temperature 98.8 F 97.7 F Pulse Rate 98 H 85 94 H Respiratory Rate 18 18 17 Blood Pressure 116/66 112/56 L 149/60 H 06/15/18 14:30 06/15/18 14:45 06/15/18 15:30 Temperature 97.7 F Pulse Rate 83 79 88 Respiratory Rate 17 18 18 Blood Pressure 120/56 L 106/57 L 115/70 06/15/18 20:00 06/16/18 00:00 06/16/18 04:00 Temperature 98.3 F 98.3 F 98.2 F Pulse Rate 72 70 68 Respiratory Rate 18 18 18 Blood Pressure 113/62 110/61 102/57 L 06/16/18 08:00 Temperature 98.0 F Pulse Rate 78 Respiratory Rate 18 Blood Pressure 95/50 L Intake & Output 06/15/18 06/16/18 06/16/18 18:59 06:59 18:59 Intake Total 50 / 50 Balance 50 / 50 Weight 79.832 kg Intake: IV 50 / 50 Ancef 1 GM Premix Inj 1 gm In 50 / 50 50 ml @ 200 mls/hr IV.SIG Q8H [facility] Rx#:[id number] Other: Weight On Admission 2.381 kg Result Diagrams: 06/16/18 05:33 Objective Remarks: GENERAL: Well-nourished, well-developed patient. CARDIOVASCULAR: Regular rate and rhythm without murmurs, gallops, or rubs. RESPIRATORY: Breath sounds equal bilaterally. No accessory muscle use. ABDOMEN/GI: Abdomen soft, non-tender, bowel sounds present. Incision: dressing, Clean, dry and intact. Fundus: Firm, non-tender at umbilicus. GENITOURINARY: Light to moderate bleeding. EXTREMITIES: No cyanosis or edema, non-tender, without signs of DVT. Medications and IVs: Active Medications Citric Acid/Sodium Citrate (Sodium Citrate/Citric Acid Liq) 30 ml PO INSIGHTS ANALYST [facility] Stop: 06/19/18 11:29 Last Admin: 06/15/18 11:55 Dose: 30 ml Diphenhydramine HCl (Benadryl Inj) 25 mg IV.PUSH Q6H PRN PRN Reason: MILD TO MODERATE ITCHING Stop: 06/16/18 15:44 Last Admin: 06/15/18 16:30 Dose: 25 mg Diphenhydramine HCl (Benadryl) 50 mg PO Q6H PRN PRN Reason: MILD TO MODERATE ITCHING Stop: 06/16/18 15:44 Last Admin: 06/16/18 04:03 Dose: 50 mg Diphtheria/Pertussis/Tetanus Vacc (Boostrix Vaccine Inj) 0.5 ml IM .ONCE ONE Stop: 06/16/18 16:01 Lactated Ringer's (Lr 1000 Ml Inj) 1,000 mls @ 150 mls/hr IV.CONT .Q6H40M [facility] Last Admin: 06/16/18 04:34 Dose: Not Given Lactated Ringer's (Lr 1000 Ml Inj) 1,000 mls @ 100 mls/hr IV.CONT .Q10H [facility] Stop: 06/16/18 15:06 Last Admin: 06/16/18 06:29 Dose: Not Given Oxytocin (Pitocin 30 Units/Ns 500 Ml Premix) 30 units in 500 mls @ 100 mls/hr IV.SIG UNSCH PRN PRN Reason: Heavy bleeding Ibuprofen (Motrin) 800 mg PO Q8H PRN PRN Reason: cramping Last Admin: 06/16/18 05:09 Dose: 800 mg Measles/Mumps/Rubella Vaccine Live (M-M-R Ii Vaccine Inj) 0.5 ml SQ .ONCE ONE Stop: 06/16/18 16:01 Miscellaneous Information ([facility] Nursing Information) 1 each OTHER UNSCH PRN PRN Reason: SEE LABEL COMMENTS Stop: 06/16/18 12:39 Miscellaneous Information ([facility] Nursing Information) 1 each OTHER UNSCH PRN PRN Reason: SEE LABEL COMMENTS Stop: 06/16/18 12:39 Naloxone HCl (Narcan Inj) 0.4 mg IV.PUSH UNSCH PRN PRN Reason: SEE LABEL COMMENTS Stop: 06/16/18 15:44 Oxycodone/Acetaminophen (Percocet 5/325 Mg) 1 tab PO Q4H PRN PRN Reason: PAIN SCALE 3 TO 5 Last Admin: 06/15/18 23:10 Dose: 1 tab Oxycodone/Acetaminophen (Percocet 5/325 Mg) 2 tab PO Q4H PRN PRN Reason: PAIN SCALE 6 TO 10 Senna/Docusate Sodium (Carol[place]-Colace) 2 tab PO Q12H PRN PRN Reason: CONSTIPATION Last Admin: 06/15/18 20:36 Dose: 2 tab Sodium Chloride (Ns Flush) 2 ml IV.FLUSH BID SWETA Last Admin: 06/15/18 20:47 Dose: Not Given Sodium Chloride (Ns Flush) 2 ml IV.FLUSH PRN PRN PRN Reason: FLUSH AFTER USING IV ACCESS Zolpidem Tartrate (Ambien) 5 mg PO HS PRN PRN Reason: INSOMNIA Assessment and Plan - Diagnosis (1) delivery delivered Code(s): O82 - Encounter for delivery without indication Status: Acute Plan: routine - Plan POD #1 pt doing well pain well managed with oral pain medication pt to shower today, denies difficulty ambulating in room wbc 18.3, afebrile, vss bonding with infant Discharge Planning: dc home in 1-2 days
[2018-06-16] MEDS: Senna/Docusate Sodium 8.6/50 MG Tablet PO PRN (11:18)
[2018-06-16] MEDS ORDERED: Diphtheria/Tetanus/Pertussis Vaccine Inj 0.5 ML Syringe IM ONE (16:00)
[2018-06-16] MEDS ORDERED: Measles/Mumps/Rubella Vaccine Inj 0.5 ML Vial SQ ONE (16:00)
--- NOTE | 2018-06-17 09:22 | P.PNOB ---
Subjective Post op day: 2 Objective Vital Signs/I&O: Vital Signs 06/16/18 11:29 06/16/18 20:00 Temperature 97.8 F 98.8 F Pulse Rate 86 89 Respiratory Rate 18 18 Blood Pressure 111/62 120/58 L Result Diagrams: 06/16/18 05:33 Objective Remarks: GENERAL: Well-nourished, well-developed patient. CARDIOVASCULAR: Regular rate and rhythm without murmurs, gallops, or rubs. RESPIRATORY: Breath sounds equal bilaterally. No accessory muscle use. ABDOMEN/GI: Abdomen soft, non-tender, bowel sounds present. Incision: Clean, dry and intact, has steri strips Fundus: Firm, non-tender at umbilicus. GENITOURINARY: Light to moderate bleeding. EXTREMITIES: No cyanosis or edema, non-tender, without signs of DVT. Medications and IVs: Active Medications Citric Acid/Sodium Citrate (Sodium Citrate/Citric Acid Liq) 30 ml PO SWITCHING CLERK [facility] Stop: 06/19/18 11:29 Last Admin: 06/15/18 11:55 Dose: 30 ml Lactated Ringer's (Lr 1000 Ml Inj) 1,000 mls @ 150 mls/hr IV.CONT .Q6H40M [facility] Last Admin: 06/16/18 04:34 Dose: Not Given Oxytocin (Pitocin 30 Units/Ns 500 Ml Premix) 30 units in 500 mls @ 100 mls/hr IV.SIG UNSCH PRN PRN Reason: Heavy bleeding Ibuprofen (Motrin) 800 mg PO Q8H PRN PRN Reason: cramping Last Admin: 06/17/18 02:02 Dose: 800 mg Oxycodone/Acetaminophen (Percocet 5/325 Mg) 1 tab PO Q4H PRN PRN Reason: PAIN SCALE 3 TO 5 Last Admin: 06/16/18 22:48 Dose: 1 tab Oxycodone/Acetaminophen (Percocet 5/325 Mg) 2 tab PO Q4H PRN PRN Reason: PAIN SCALE 6 TO 10 Last Admin: 06/17/18 08:08 Dose: 2 tab Senna/Docusate Sodium (Carolina-Colace) 2 tab PO Q12H PRN PRN Reason: CONSTIPATION Last Admin: 06/16/18 11:18 Dose: 2 tab Sodium Chloride (Ns Flush) 2 ml IV.FLUSH BID [facility] Last Admin: 06/17/18 02:11 Dose: 2 ml Sodium Chloride (Ns Flush) 2 ml IV.FLUSH PRN PRN PRN Reason: FLUSH AFTER USING IV ACCESS Zolpidem Tartrate (Ambien) 5 mg PO HS PRN PRN Reason: INSOMNIA Assessment and Plan - Diagnosis (1) delivery delivered Code(s): O82 - Encounter for delivery without indication Status: Acute Plan: routine - Plan POD #2 pt doing well pain well managed with oral pain medication breast and bottle feeding had BM bonding with routine care Discharge Planning: dc home today after lunch
--- NOTE | 2018-06-17 09:27 | P.DS ---
Date of admission: 06/15/18 09:41 Primary care physician: Norman Heredia DO Attending physician on discharge: Wilfred August Anticipated date of discharge: 06/17/18 Brief History from admission: Scheduled due to previous fourth degree tear during delivery DS: Diagnosis - Discharge Diagnosis (1) delivery delivered Status: Acute DS: Medications - Discharge Medications Prescriptions: ibuprofen 800 mg PO Q8H PRN #30 tab PRN Reason: cramping oxycodone-acetaminophen 1 - 2 tab PO Q4H PRN #24 tab PRN Reason: moderate pain DS: Summary Hospital Course: primary c section last delivery pt had 4th degree tear - Time Spent with Patient Total time spent providing and/or coordinating discharge services: Less than 30 minutes Exam Vital signs: Vital Signs 06/16/18 11:29 06/16/18 20:00 Temperature 97.8 F 98.8 F Pulse Rate 86 89 Respiratory Rate 18 18 Blood Pressure 111/62 120/58 L Narrative: see post op note Results Procedures completed during hospitalization: primary c section Discharge Plan - Discharge Disposition Patient Disposition: 01 Discharge Home - Discharge Condition Condition: Good - Discharge Order Discharge Orders: Discharge Order (Routine); Ordered 06/17/18 Ordered By: Kathleen Baker YARDER Clear for Discharge (Routine); Ordered 06/17/18 Ordered By: Kathleen Baker - Discharge Details Anticipated Discharge Date: 06/17/18 - Physicians Team Primary Care Provider: Norman Heredia Attending Provider: Wilfred August - Rxs /Orders / Referrals /Forms Prescriptions: New ibuprofen 800 mg Tablet 800 mg PO Q8H PRN (Reason: cramping) Qty: 30 RF: 0 oxycodone-acetaminophen 5-325 mg Tablet 1 - 2 tab PO Q4H PRN (Reason: moderate pain) Qty: 24 RF: 0 Continue acetaminophen [Tylenol] 325 mg Capsule 650 mg PO Q4H PRN (Reason: Fever Or Pain) vit,[id number] [PNV 29-1] 29 mg iron- 1 mg Tablet 1 tab PO DAILY Referrals: Norman Heredia DO [Primary Care Provider] - See Instructions Wilfred August MD [Physician] - See Instructions (keep already scheduled appointment, you need to be seen in 1 week) - Discharge Instructions Patient Printed Instructions: (DC) - Post Discharge Care Plan Care Plan Goals: Discharge Care Plan Goals After Section Congratulations on your new baby! We want your recovery to be rios and trouble free. You had a section, or . During the , your baby was delivered through an incision in your abdomen and uterus. Full recovery after a can take time. Its important to take care of yourself for your own sake and because your new baby needs you. Here are some guidelines to follow at home. Incision care: Here's how to take care of your incision: * Shower as needed. Pat your incision dry. * Watch your incision for signs of infection, like more redness or drainage. * Hold a pillow against the incision when you laugh or cough and when you get up from a lying or sitting position. * Remember, it can take as long as 6 weeks for your incision to heal. Diet and Activity: Here are some suggestions: * Dont try to take care of anyone other than your baby and yourself. * Remember, the more active you are, the more likely you are to have an increase in your bleeding. * Get lots of rest. Take naps when the infant is napping. * Increase your activities bit by bit. * Plan your activities so that you dont have to go up or down stairs more than needed. * Do postsurgical deep breathing and coughing exercises. Follow your physician' s instructions. * Dont lift anything heavier than your baby until your physician tells you it s OK. * Dont drive when you are on pain medications. * Dont have sexual intercourse until after youve had a checkup with your physician and you have decided on a control method. * Allow others to do things for you. Don't hesitate to ask for help. If you are : * Ask before you take any medicine. * If you leak milk, it will help to nurse right before the activity. * Talk to your healthcare provider about alcohol, if you choose to drink. * When youre sick, check with your physician if the medications would impact the breast feeding * Ask your physician before taking any prescription or over-the- counter medicines, herbs, or supplements. * Ask your physician what to use for prevention while you are nursing. Balancing the Blues: Recognize your need to talk, to feel protected, to have private time. Allow yourself to cry, to sit, to think. Ask for help when you need it, and accept help when its offered. Knowing your needs is not a weakness. Share your thoughts with your partner. Or black pickler the phone and call a friend, your mother , a sister, or an aunt. Rest, eat right, and get some light exercise. The mind feels best when the body feels good. When to Call your Physician: * Fever of 100.5F or higher. * Redness, pain, or drainage at your incision site * Bleeding that requires a new sanitary pad every hour * Severe pain in the abdomen * Pain or urgency with urination * Foul odor from vaginal discharge * Trouble urinating or emptying your bladder * No bowel movement within 1 week after the of your baby * Swollen, red, painful area in the calf/leg * Appearance of rash or hives * Sore, red, painful area on the breasts that may come with flu-like symptoms * Feelings of anxiety, panic, and/or depression Signs of Depression include: You dont want to be with the baby. Your symptoms are not getting better, and youre getting more upset. You have no interest in eating or are not able to sleep. You think you may harm yourself or the baby. The Depression After Delivery hotline (097-350-2487) may also be helpful. Follow-Up: * Keep your appointments as scheduled. * If your symptoms worsen call your OB Physician, or go to an Urgent Care Center or Emergency Room. * Smoking is Dangerous to your health. Avoid second hand smoke. * Call the 24-hour crisis hotline for domestic abuse at Call 911: Call 911 right away if you have: * Sudden onset of chest pain that is not relieved by medications. * Shortness of breath * Severe Depression /Thoughts of harm to self and others
[2018-06-17] MEDS: Senna/Docusate Sodium 8.6/50 MG Tablet PO PRN (11:27)
== END 2018-06-17 13:16 | disposition home or self-care (01) ==
LOC: HNUR 09:41 → H2E 09:49 → H1EA 15:52
PROVIDERS: ADMIT Obstetrics & Gynecology; ATTEND Obstetrics & Gynecology